=== PATIENT | male | born 1950 | race Caucasian/White ===

== ENCOUNTER 2020-11-05 17:02 | Outpatient (RCR) | payer MEDICARE, SELFPAY ==
[2015-09-17 05:20] VITALS: BMI 30.6
[2020-11-05] MEDS: COVID-19 VACC, MRNA(PFIZER)/PF 30 MCG/0.3 ML SYRINGE IM (14:06)
[2020-11-26] MEDS: COVID-19 VACC, MRNA(PFIZER)/PF 30 MCG/0.3 ML SYRINGE IM (14:00)
== END 2021-01-28 23:59 ==
LOC: IMMUN 17:02
PROVIDERS: PCP Family Medicine; Visit Provider Family Medicine
DX: Z23 Encounter for immunization (principal)
CPT/HCPCS: 0001A; 0002A; 91300